=== PATIENT | male | born 1970 | race Caucasian/White ===

== ENCOUNTER 2018-08-17 13:02 | Emergency (ER) | payer MEDICAID, OTHER ==
[2018-08-17] MEDS: SOD CHLORIDE 0.9% 500 ML IV (15:47)
[2018-08-17] MEDS: ONDANSETRON 4 MG INJ IV (15:47)
[2018-08-17] MEDS: LORAZEPAM 2 MG INJ IV (15:47)
== END 2018-08-17 17:02 | disposition home or self-care (01) ==
LOC: FTE 13:02
DX: R11.2 Nausea with vomiting, unspecified (principal)
CPT/HCPCS: 96361; 96374; 96375; 99284-25